=== PATIENT | male | born 1975 | race Two or more races ===

== ENCOUNTER 2017-05-06 15:26 | Emergency (ER) | payer SELFPAY ==
[~2017-05-06] VITALS: Ht 182.9 cm; Wt 127.0 kg
[2017-05-06] MEDS ORDERED: IV NORMAL SALINE 1000ML BAG 1,000 ML IV ONE (16:00)
[2017-05-06] MEDS ORDERED: MORPHINE SULFATE 10 MG/ML VIAL. IV ONE (16:00)
[2017-05-06] MEDS ORDERED: ONDANSETRON PF 4 MG/2 ML VIAL. IV ONE (16:00)
[2017-05-06] MEDS ORDERED: LABETALOL 20 MG/4 ML DISP.SYRIN. IVP ONE (16:00)
--- NOTE | 2017-05-06 16:11 | EKG ---
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
[2017-05-06 16:13] LABS: BASO # 0.1 x10^3/uL (0.0-0.2); BASO % 1 % (0-3); EOS % 1 % (0-3); HEMATOCRIT 45.9 % (39.0-53.0); HEMOGLOBIN 15.3 g/dL (13.0-17.5); LYMPH # 1.5 x10^3/uL (1.0-4.8); LYMPH % 11 % (24-48); MEAN CORPUSCULAR HEMOGLOBIN 30 pg (25-35); MEAN CORPUSCULAR HGB CONC 33 g/dL (31-37); MEAN CORPUSCULAR VOLUME 90 fL (79-100); MONO % 9 % (0-9); NEUT % 78 % (31-73); PLATELET COUNT 272 x10^3/uL (140-400); RED BLOOD COUNT 5.12 x10^6/uL (4.30-5.70); RED CELL DISTRIBUTION WIDTH 12.7 % (11.5-14.5)
[2017-05-06] MEDS ORDERED: CONTRAST GIVEN MC PRN (16:15)
[2017-05-06] MEDS ORDERED: IOHEXOL 300 MG/ML 100ML VIAL. IV ONE (16:15)
[2017-05-06 16:23] LABS: INR 1.1 (0.8-1.1); PROTHROMBIN TIME PATIENT 13.1 SEC (11.7-14.0)
[2017-05-06 16:32] LABS: CREATININE 0.9 mg/dL (0.7-1.3); GFR 92.1; POTASSIUM 3.9 mmol/L (3.5-5.1)
[2017-05-06 16:40] LABS: ALBUMIN 3.4 g/dL (3.4-5.0); ALBUMIN/GLOBULIN RATIO 0.7 (1.0-1.7); MAGNESIUM 2.1 mg/dL (1.8-2.4); TOTAL BILIRUBIN 0.5 mg/dL (0.2-1.0); TOTAL PROTEIN 8.4 g/dL (6.4-8.2)
--- NOTE | 2017-05-06 16:58 | PHYS DOC ---
Past Medical History Past Medical History: Diabetes-Type II, GERD, Hypertension Past Surgical History: No Surgical History Alcohol Use: None Drug Use: None Adult General Chief Complaint Chief Complaint: FACE PAIN HPI HPI Patient is a 41 year old male with past medical history of diabetes and hypertension presenting to the emergency department for evaluation of left- sided headache radius to his left neck arm chest and extends all the way down to his left leg. There has been no unilateral weakness numbness or tingling rather he feels just generally weak and daughter states that she thinks that he is speaking more slowly than usual but not slurred. Patient says that the symptoms have been going on for approximately one week but became much worse last night. Patient denies history of heart attacks or strokes and he also denies any history of migraine headaches. Patient is insulin controlled diabetic and says that he took all of his medications this morning. Patient is in no obvious distress but he is slightly tachycardic and hypertensive. Review of Systems Review of Systems Constitutional: Denies fever or chills [] Eyes: Denies change in visual acuity, redness, or eye pain [] HENT: Denies nasal congestion or sore throat [] Respiratory: Denies cough or shortness of breath [] Cardiovascular: + CP GI: Denies abdominal pain, nausea, vomiting, bloody stools or diarrhea [] : Denies dysuria or hematuria [] Musculoskeletal: Denies back pain or joint pain [] Integument: Denies rash or skin lesions [] Neurologic: + headache. No focal weakness or sensory changes [] All other systems were reviewed and found to be within normal limits, except as documented in this note. Current Medications Current Medications Current Medications Medications (Trade) Dose Ordered Sig/Queenie Start Time Stop Time Status Last Admin Dose Admin Info (Do NOT chart on this entry -- for MONITORING) 1 each PRN DAILY PRN 05/06/17 16:15 05/08/17 16:14 Iohexol (Omnipaque 300 Mg/ml) 90 ml 1X ONCE 05/06/17 16:15 05/06/17 16:16 DC 05/06/17 16:49 90 ML Labetalol HCl (Normodyne) 20 mg 1X ONCE 05/06/17 16:00 05/06/17 16:01 DC 05/06/17 16:15 20 MG Morphine Sulfate 5 mg 1X ONCE 05/06/17 16:00 05/06/17 16:01 DC 05/06/17 16:16 5 MG Ondansetron HCl (Zofran) 8 mg 1X ONCE 05/06/17 16:00 05/06/17 16:01 DC 05/06/17 16:15 8 MG Sodium Chloride 1,000 ml @ 1,000 mls/hr 1X ONCE 05/06/17 16:00 05/06/17 16:59 DC 05/06/17 16:15 1,000 MLS/HR Allergies Allergies Allergies Coded Allergies Type Severity Reaction Last Updated Verified No Known Drug Allergies 03/26/17 No Physical Exam Physical Exam Constitutional: Well developed, well nourished, no acute distress, non-toxic appearance. [] HENT: Normocephalic, atraumatic, bilateral external ears normal, oropharynx moist, no oral exudates, nose normal. [] Eyes: PERRLA, EOMI, conjunctiva normal, no discharge. [] Neck: Normal range of motion, no tenderness, supple, no stridor. [] Cardiovascular:Heart rate regular rhythm but tachycardic, no murmur [] Lungs & Thorax: Bilateral breath sounds clear to auscultation [] Abdomen: Bowel sounds normal, soft, no tenderness, no masses, no pulsatile masses. [] Skin: Warm, dry, no erythema, no rash. [] Back: No tenderness, no CVA tenderness. [] Extremities: No tenderness, no cyanosis, no clubbing, ROM intact, no edema. [] Neurologic: Alert and oriented X 3, normal motor function, normal sensory function, no focal deficits noted. [] Current Patient Data Vital Signs Vital Signs Date Time Temp Pulse Resp B/P (MAP) Pulse Ox O2 Delivery O2 Flow Rate FiO2 05/06/17 16:21 92 18 143/84 (103) 100 Room Air 05/06/17 15:37 98.1 98.1 Lab Values Laboratory Tests Test 05/06/17 15:47 05/06/17 16:50 White Blood Count 13.0 x10^3/uL (4.0-11.0) H Red Blood Count 5.12 x10^6/uL (4.30-5.70) Hemoglobin 15.3 g/dL (13.0-17.5) Hematocrit 45.9 % (39.0-53.0) Mean Corpuscular Volume 90 fL (79-100) Mean Corpuscular Hemoglobin 30 pg (25-35) Mean Corpuscular Hemoglobin Concent 33 g/dL (31-37) Red Cell Distribution Width 12.7 % (11.5-14.5) Platelet Count 272 x10^3/uL (140-400) Neutrophils (%) (Auto) 78 % (31-73) H Lymphocytes (%) (Auto) 11 % (24-48) L Monocytes (%) (Auto) 9 % (0-9) Eosinophils (%) (Auto) 1 % (0-3) Basophils (%) (Auto) 1 % (0-3) Neutrophils # (Auto) 10.2 x10^3uL (1.8-7.7) H Lymphocytes # (Auto) 1.5 x10^3/uL (1.0-4.8) Monocytes # (Auto) 1.2 x10^3/uL (0.0-1.1) H Eosinophils # (Auto) 0.1 x10^3/uL (0.0-0.7) Basophils # (Auto) 0.1 x10^3/uL (0.0-0.2) Prothrombin Time 13.1 SEC (11.7-14.0) Prothrombin Time INR 1.1 (0.8-1.1) PTT 28 SEC (24-38) Sodium Level 132 mmol/L (136-145) L Potassium Level 3.9 mmol/L (3.5-5.1) Chloride Level 93 mmol/L (98-107) L Carbon Dioxide Level 28 mmol/L (21-32) Anion Gap 11 (6-14) Blood Urea Nitrogen 11 mg/dL (8-26) Creatinine 0.9 mg/dL (0.7-1.3) Estimated GFR (Cockcroft-Gault) 92.1 BUN/Creatinine Ratio 12 (6-20) Glucose Level 369 mg/dL (70-99) H Calcium Level 9.0 mg/dL (8.5-10.1) Magnesium Level 2.1 mg/dL (1.8-2.4) Total Bilirubin 0.5 mg/dL (0.2-1.0) Aspartate Amino Transferase (AST) 46 U/L (15-37) H Alanine Aminotransferase (ALT) 168 U/L (16-63) H Alkaline Phosphatase 77 U/L (46-116) Creatine Kinase 261 U/L (39-308) Troponin I Quantitative < 0.017 ng/mL (0.000-0.055) TJ-Tbg-F-Type Natriuretic Peptide 28 pg/mL (0-124) Total Protein 8.4 g/dL (6.4-8.2) H Albumin 3.4 g/dL (3.4-5.0) Albumin/Globulin Ratio 0.7 (1.0-1.7) L Lipase 113 U/L (73-393) Thyroid Stimulating Hormone (TSH) 1.221 uIU/mL (0.358-3.74) Ethyl Alcohol Level < 10 mg/dL (0-10) Urine Collection Type Unknown Urine Color Yellow Urine Clarity Clear Urine pH 6.0 Urine Specific [place] >=1.030 Urine Protein Negative mg/dL (NEG-TRACE) Urine Glucose (UA) >=1000 mg/dL (NEG) Urine Ketones (Stick) Negative mg/dL (NEG) Urine Blood Negative (NEG) Urine Nitrite Negative (NEG) Urine Bilirubin Negative (NEG) Urine Urobilinogen Dipstick 0.2 mg/dL (0.2 mg/dL) Urine Leukocyte Esterase Negative (NEG) Urine RBC Occ /HPF (0-2) Urine WBC 1-4 /HPF (0-4) Urine Bacteria 0 /HPF (0-FEW) Urine Opiates Screen Pos (NEG) Urine Methadone Screen Neg (NEG) Urine Barbiturates Neg (NEG) Urine Phencyclidine Screen Neg (NEG) Urine Amphetamine/Methamphetamine Neg (NEG) Urine Benzodiazepines Screen Neg (NEG) Urine Cocaine Screen Neg (NEG) Urine Cannabinoids Screen Neg (NEG) Urine Ethyl Alcohol Neg (NEG) Laboratory Tests 05/06/17 15:47 Laboratory Tests 05/06/17 15:47 EKG EKG Sinus tachycardia at 112 beats per minutes with normal axis no obvious ST elevation or depression with normal T waves Radiology/Procedures Radiology/Procedures CT of the head without contrast, 05/06/2017: History: Headache The ventricles are within normal limits in size. There is no shift of the midline structures. There is no evidence of acute intracranial hemorrhage or mass effect. There are air-fluid levels in both maxillary sinuses and the sphenoid sinuses. There is mild to moderate mucosal thickening in the other paranasal sinuses. IMPRESSION: 1. No acute intracranial abnormality is detected. 2. Bilateral paranasal sinusitis PQRS Compliance Statement: One or more of the following individualized dose reduction techniques were utilized for this examination: 1. Automated exposure control 2. Adjustment of the mA and/or kV according to patient size 3. Use of iterative reconstruction technique DICTATED and SIGNED BY: DANIKA PENG MD DATE: 05/06/[address] chest, abdomen and pelvis without and with contrast 05/06/2017 Clinical indication: Left-sided weakness and arm pain. Chest pain, concern for dissection. COMPARISON: None. TECHNIQUE: Multiple CT images of the chest, abdomen and pelvis were obtained without and following the intravenous ministration of 90 mL Omnipaque 300. MIPS were obtained of the chest, abdomen and pelvis. *One or more of the following individualized dose reduction techniques were utilized for this examination: 1. Automated exposure control. 2. Adjustment of the mA and/or kV according to patient size. 3. Use of iterative reconstruction technique. FINDINGS: CTA CHEST: Thoracic aorta is normal in caliber without intramural hematoma. No mediastinal hematoma. No thoracic aortic dissection. No axillary, mediastinal or hilar lymphadenopathy. The central airways are patent. No pleural effusion, pneumothorax or focal airspace consolidation. There is a 2 mm noncalcified nodule in the anterior right lower lobe series 5/image 61. There are no destructive osseous lesions. CTA abdomen and pelvis: Liver is normal in size and morphology. There are few scattered ill-defined hepatic hypodensities in the right lobe measuring 0.5 cm series 5/image 78, 0.4 cm series 5/image 83, 0.6 cm image 97 and 0.9 cm image 109. Prior cholecystectomy. Spleen, adrenal glands, pancreas and kidneys are unremarkable. Abdominal aorta is normal in caliber with no evidence of dissection. Celiac, superior mesenteric, bilateral main renal and inferior mesenteric arteries are patent at their origins. Normal caliber common iliac arteries, patent. The bilateral internal and external iliac arteries are patent. No retroperitoneal or mesenteric lymphadenopathy. The small and large bowel loops are normal in caliber without obstruction. The appendix is normal in appearance. No abdominal free fluid. No pneumoperitoneum. Urinary bladder, prostate seminal vesicles are unremarkable. There is a small fat-containing left inguinal hernia. No iliac or inguinal lymphadenopathy. There is multilevel lumbar spondylosis. There are no destructive osseous lesions. IMPRESSION: CTA CHEST: 1. No acute thoracic aortic injury. 2. Tiny, 2 mm noncalcified pulmonary nodule in the right lower lobe. Follow-up CT chest in 6 months is recommended to assess for stability. CTA abdomen and pelvis: 1. Normal caliber abdominal aorta and major branch vessels. 2. A few subcentimeter right hepatic hypodensities which are ill-defined and too small to definitively characterize, indeterminate. Follow-up nonemergent MRI abdomen is recommended for further evaluation. Electronically signed by: Gilma Silva MD (05/06/2017 5:37 PM) [facility] DICTATED and SIGNED BY: GILMA SILVA MD DATE: 05/06/17 172 Course & Med Decision Making Course & Med Decision Making Patient has concerning symptoms of chest pain in the setting of multiple risk factors and uncontrolled hypertension and tachycardia. He was given multiple medications to help his pain and blood pressure in both did improve significantly. His workup is unremarkable for any acute cardiac ischemia or dissection. He does have sinusitis which likely would explain his headache. I spoke to patient at length about being admitted to the hospital as he has risk factors and could potentially from a heart attack if he is not admitted to the hospital. Patient requested his daughter to do the translating and patient verbalized understanding of my concerns of and disability and he said that he felt much better and would like to go home. Patient verbalized understanding of my concerns and he accepted the risks of and disability by leaving against my recommendations. I again tried to convince him to be admitted to the hospital however he continued to refuse be discharged and treated for sinusitis and told to follow with his primary care provider and/or manager legal within 72 hours and come back to the ED sooner with worsening pain fevers vomiting or other general concerns. Patient will be sent home on Augmentin and [place] and told to use [id number] Nasonex. Dragon Disclaimer Dragon Disclaimer This electronic medical record was generated, in whole or in part, using a voice recognition dictation system. Departure Departure Impression: Primary Impression: Sinusitis Additional Impressions: Chest pain Accelerated hypertension Headache Disposition: HOME, SELF-CARE Condition: STABLE Referrals: NO PCP (PCP) KLEBER JOHNSON MD Patient Instructions: Sinusitis Additional Instructions: TAKE 400MG OF IBUPROFEN EVERY 6 HOURS AND THE NORCO FOR BREAKTHROUGH PAIN. USE OTC NASONEX FOR SINUS CONGESTION. FOLLOW WITH YOUR PCP OR THE RING SPINNER WITHIN 72 HOURS AND COME BACK TO THE ED WITH WORSENING PAIN, FEVERS, SOA, OR OTHER GENERAL CONCERNS. THANK YOU! Scripts Amoxicillin (AMOXICILLIN) 875 Mg Tablet 1 TAB PO BID, #14 TAB Prov: MAG GARCIA DO 05/06/17 Hydrocodone/Apap 5-325 (NORCO 5-325 TABLET) 1 Each Tablet 1 TAB PO PRN Q6HRS Y for PAIN, #14 TAB 0 Refills Prov: MAG GARCIA DO 05/06/17 Problem Qualifiers Primary Impression: Sinusitis Sinusitis location: maxillary Chronicity: acute Recurrence: not specified as recurrent Qualified Codes: J01.00 - Acute maxillary sinusitis, unspecified MAG GARCIA DO May 06, 2017 16:58
[2017-05-06 17:04] LABS: BILIRUBIN,URINE NEGATIVE (NEG); GLUCOSE,URINE >=1000 mg/dL (NEG); NITRITE,URINE NEGATIVE (NEG); PROTEIN,URINE NEGATIVE (NEG-TRACE); UROBILINOGEN,URINE 0.2 mg/dL (0.2 mg/dL)
[2017-05-06 17:09] LABS: BARBITURATES NEG (NEG); BENZODIAZEPINES NEG (NEG); CANNABINOIDS NEG (NEG); COCAINE NEG (NEG); METHADONE NEG (NEG); OPIATES POS (NEG); PHENCYCLIDINE NEG (NEG)
[2017-05-06 17:22] LABS: BACTERIA,URINE 0 /HPF (0-FEW); RBC,URINE OCC /HPF (0-2)
--- NOTE | 2017-05-06 17:40 | RAD ---
CT chest, abdomen and pelvis without and with contrast 05/06/2017 Clinical indication: Left-sided weakness and arm pain. Chest pain, concern for dissection. COMPARISON: None. TECHNIQUE: Multiple CT images of the chest, abdomen and pelvis were obtained without and following the intravenous ministration of 90 mL Omnipaque 300. MIPS were obtained of the chest, abdomen and pelvis. *One or more of the following individualized dose reduction techniques were utilized for this examination: 1. Automated exposure control. 2. Adjustment of the mA and/or kV according to patient size. 3. Use of iterative reconstruction technique. FINDINGS: CTA CHEST: Thoracic aorta is normal in caliber without intramural hematoma. No mediastinal hematoma. No thoracic aortic dissection. No axillary, mediastinal or hilar lymphadenopathy. The central airways are patent. No pleural effusion, pneumothorax or focal airspace consolidation. There is a 2 mm noncalcified nodule in the anterior right lower lobe series 5/image 61. There are no destructive osseous lesions. CTA abdomen and pelvis: Liver is normal in size and morphology. There are few scattered ill-defined hepatic hypodensities in the right lobe measuring 0.5 cm series 5/image 78, 0.4 cm series 5/image 83, 0.6 cm image 97 and 0.9 cm image 109. Prior cholecystectomy. Spleen, adrenal glands, pancreas and kidneys are unremarkable. Abdominal aorta is normal in caliber with no evidence of dissection. Celiac, superior mesenteric, bilateral main renal and inferior mesenteric arteries are patent at their origins. Normal caliber common iliac arteries, patent. The bilateral internal and external iliac arteries are patent. No retroperitoneal or mesenteric lymphadenopathy. The small and large bowel loops are normal in caliber without obstruction. The appendix is normal in appearance. No abdominal free fluid. No pneumoperitoneum. Urinary bladder, prostate seminal vesicles are unremarkable. There is a small fat-containing left inguinal hernia. No iliac or inguinal lymphadenopathy. There is multilevel lumbar spondylosis. There are no destructive osseous lesions. IMPRESSION: CTA CHEST: 1. No acute thoracic aortic injury. 2. Tiny, 2 mm noncalcified pulmonary nodule in the right lower lobe. Follow-up CT chest in 6 months is recommended to assess for stability. CTA abdomen and pelvis: 1. Normal caliber abdominal aorta and major branch vessels. 2. A few subcentimeter right hepatic hypodensities which are ill-defined and too small to definitively characterize, indeterminate. Follow-up nonemergent MRI abdomen is recommended for further evaluation. Electronically signed by: Aryan Silva MD (05/06/2017 5:37 PM) [facility]
[2017-05-06] MEDS ORDERED: HYDR-971 PO (18:17)
[2017-05-06] MEDS ORDERED: AMOX875T PO (18:17)
[2017-05-06 18:27] VITALS: BP 153/94
== END 2017-05-06 18:28 | disposition home or self-care (01) ==
LOC: ER 15:26
DX: J01.00 Acute maxillary sinusitis, unspecified (principal); R07.9 Chest pain, unspecified; R51 Headache; I10 Essential (primary) hypertension; K21.9 Gastro-esophageal reflux disease without esophagitis; E11.9 Type 2 diabetes mellitus without complications; Z79.4 Long term (current) use of insulin
CPT/HCPCS: 36415; 70450; 71275; 74174; 80053; 80307; 81001; 82550; 83690; 83735; 83880; 84443; 84484; 85025; 85610; 85730; 93005; 96361; 96374; 96375; 99285; G0480; J2270; J2405; J3490; J7030; Q9967; G0479